=== PATIENT | male | born 2000 | race Caucasian/White ===

== ENCOUNTER 2023-07-14 18:52 | Emergency (ER) | payer SELFPAY ==
[~2023-07-14] VITALS: Ht 162.6 cm; Wt 78.0 kg
[2023-07-14 18:56] VITALS: BP 135/74; PULSE 80; RESP 18; TEMP 98.4; O2SAT 99
== END 2023-07-14 19:08 ==
LOC: MED 18:52
DX: F10.129 Alcohol abuse with intoxication, unspecified (principal); Y90.9 Presence of alcohol in blood, level not specified; V49.88XA Car occupant (driver) (passenger) injured in other specified transport accidents, initial encounter; Y93.89 Activity, other specified; Y92.89 Other specified places as the place of occurrence of the external cause; Y99.8 Other external cause status
CPT/HCPCS: 99283